=== PATIENT | female | born 1970 | race Caucasian/White ===

== ENCOUNTER → 2017-11-29 | Outpatient (CLI) | payer OTHER ==
[2017-08-09 15:00] VITALS: BP 122/64
[~2017-11-29] MED LIST: ACET325C5 PO; CETI10TA22 PO; ESTR2TAB PO; [UNRECOGNIZED DRUG - CODE] PO
--- NOTE | 2017-11-29 17:14 | RAD ---
Chest radiograph 11/29/2017 12:00 AM INDICATION: Malignant melanoma of the right eye COMPARISON: August 08, 2017 TECHNIQUE: Frontal and lateral views of the chest are provided. FINDINGS: The cardiomediastinal silhouette is within normal limits. There are no pleural effusions. There is no pulmonary vascular congestion. There is no pneumothorax. The lungs are clear. No significant osseous abnormality is identified. IMPRESSION: No acute cardiopulmonary process. Electronically signed by: Vandana Aguilar MD (11/29/2017 5:11 PM) [id number]
== END | disposition home or self-care (01) ==
LOC: RAD 15:19
PROVIDERS: ATTEND Internal Medicine Hematology & Oncology
DX: C69.31 Malignant neoplasm of right choroid (principal); I10 Essential (primary) hypertension; E78.5 Hyperlipidemia, unspecified; M19.90 Unspecified osteoarthritis, unspecified site; Z82.49 Family history of ischemic heart disease and other diseases of the circulatory system; Z83.3 Family history of diabetes mellitus; Z82.61 Family history of arthritis; Z87.891 Personal history of nicotine dependence; Z90.721 Acquired absence of ovaries, unilateral; Z90.49 Acquired absence of other specified parts of digestive tract; Z88.0 Allergy status to penicillin; Z88.5 Allergy status to narcotic agent; Z88.8 Allergy status to other drugs, medicaments and biological substances; Z90.710 Acquired absence of both cervix and uterus
CPT/HCPCS: 71046

== ENCOUNTER → 2018-02-17 | Day surgery (SDC) | payer OTHER ==
[~2018-02-17] MED LIST changes: +IV RINGERS,LACTATED 1000ML 1,000 ML IV SCH; +LIDOCAINE 1% PF 2 ML VIAL. ID PRN; +ONDANSETRON PF 4 MG/2 ML VIAL. IV PRN; +PROCHLORPERAZINE 10 MG/2 ML VIAL. IV PRN; +PROPOFOL 20 ML IV ONE; +fentaNYL PF VIAL 100 MCG/2 ML VIAL IV PRN
[2018-02-17 08:35] VITALS: BP 98/57
--- NOTE | 2018-02-20 18:07 | PATHOLOGY ---
[facility] Accession Number: [id number] . 01 Material submitted: . ESOPHAGITIS BIOPSY . 01 Clinical history: . Nausea with vomiting . 02 Diagnosis: Esophageal biopsies: - Segments of hyperplastic squamous esophageal mucosa showing focal ulceration and acute and chronic inflammation. [facility]/02/20/2018 . 02 Comment: Sections of the esophageal biopsy reveal segments of focally tangentially oriented, hyperplastic squamous esophageal mucosa showing focal ulceration and acute and chronic inflammation with focal intraepithelial neutrophils. There are no viral inclusions identified. The findings are consistent with reflux esophagitis. ([facility] 02/20/2018) . 02 Electronically signed: . Tim Bess MD, Pathologist NPI- [id number] . 01 Gross description: . Received in formalin labeled "Angeles Garcia, esophagitis BX," are 3 segments of jackson soft tissue measuring 0.9 x 0.5 x 0.2 cm in aggregate dimensions and ranging from 0.2 to 0.5 cm in maximum dimension. The specimen is submitted entirely in cassette A1. ([facility]; 02/17/2018) TOB/TOB . 02 Pathologist provided ICD-10: K21.0 . 02 CPT . 137686 Specimen Comment: A courtesy copy of this report has been sent to Specimen Comment: [phone]. Specimen Comment: Report sent to DR CHANEY Specimen Comment: A duplicate report has been generated due to demographic updates. Performed at: 01 [facility] [address] [id number] MD Marco Ramirez MD Phone: [phone] Performed at: [address] [facility] [address] [place], [place] [id number] MD Tim Bess MD Phone: [phone]
== END | disposition home or self-care (01) ==
LOC: ENDOS 06:51
PROVIDERS: ATTEND Internal Medicine Gastroenterology
DX: K22.10 Ulcer of esophagus without bleeding (principal); K21.0 Gastro-esophageal reflux disease with esophagitis; K29.50 Unspecified chronic gastritis without bleeding; F32.9 Major depressive disorder, single episode, unspecified; E78.00 Pure hypercholesterolemia, unspecified; Z88.0 Allergy status to penicillin; Z88.2 Allergy status to sulfonamides; Z91.040 Latex allergy status; Z91.048 Other nonmedicinal substance allergy status; Z86.010 Personal history of colon polyps; Z90.710 Acquired absence of both cervix and uterus; Z98.84 Bariatric surgery status; Z98.890 Other specified postprocedural states; Z83.3 Family history of diabetes mellitus; Z82.49 Family history of ischemic heart disease and other diseases of the circulatory system; Z80.41 Family history of malignant neoplasm of ovary; Z79.899 Other long term (current) drug therapy; Z98.51 Tubal ligation status
CPT/HCPCS: 43239; 88305; J2704

== ENCOUNTER → 2018-02-21 | Outpatient (CLI) | payer OTHER ==
[2018-02-17 08:35] VITALS: BP 98/57
[~2018-02-21] MED LIST changes: +BARIUM SULFATE 340 GM SUSPENSION. PO ONE; +BARIUM SULFATE 60% 355 ML SUSP PO ONE; -IV RINGERS,LACTATED 1000ML 1,000 ML IV SCH; -LIDOCAINE 1% PF 2 ML VIAL. ID PRN; -ONDANSETRON PF 4 MG/2 ML VIAL. IV PRN; -PROCHLORPERAZINE 10 MG/2 ML VIAL. IV PRN; -PROPOFOL 20 ML IV ONE; +SIMETHICONE/SOD BICARB/CITRIC ACID PACKET. PO ONE; -fentaNYL PF VIAL 100 MCG/2 ML VIAL IV PRN
--- NOTE | 2018-02-21 10:55 | RAD ---
Upper GI, 02/21/2018: HISTORY: Nausea and vomiting, previous lap band The study was performed utilizing high density barium and gas-forming crystals followed by regular liquid barium. 2.9 minutes of fluoroscopy time was utilized. 14 static and dynamic fluoroscopic sequence is were recorded. The swallowing mechanism is intact. The esophageal peristalsis is normal. A lap band device is in place. There is good flow of contrast through the banded area into the body of the stomach. No gastric ulceration or mass is evident. There is a suggestion of mild fold thickening in the proximal duodenum, although incomplete duodenal distention may be contributing to this appearance. No duodenal ulcer is evident. IMPRESSION:- 1. A lap band is in place. 2. Mild fold thickening in the proximal duodenum suggesting nonspecific duodenitis. 3. No evidence of significant upper GI obstruction. Electronically signed by: Matt Garcia MD (02/21/2018 10:51 AM) [facility] [place]
== END | disposition home or self-care (01) ==
LOC: RAD 08:19
PROVIDERS: ATTEND Internal Medicine Gastroenterology
DX: R11.2 Nausea with vomiting, unspecified (principal)
CPT/HCPCS: 74240

== ENCOUNTER → 2018-09-26 | Outpatient (CLI) | payer OTHER, BC ==
[2018-02-17 08:35] VITALS: BP 98/57
[~2018-09-26] MED LIST changes: -BARIUM SULFATE 340 GM SUSPENSION. PO ONE; -BARIUM SULFATE 60% 355 ML SUSP PO ONE; -SIMETHICONE/SOD BICARB/CITRIC ACID PACKET. PO ONE
--- NOTE | 2018-09-26 16:07 | RAD ---
Examination: RIBS LEFT AND PA CHEST History: Rib pain Comparison/Correlation: None Findings: PA standing upright frontal view chest was obtained. 4 views of the left ribs in addition were provided. Heart size and pulmonary vasculature are normal. No infiltrate or pleural effusion. Left ribs are intact with no fracture or destructive change. Catheter tubing involving left upper quadrant with associated port noted. Surgical clips are evident. Impression: Left ribs are intact. No infiltrate. Electronically signed by: Charles Aldana MD (09/26/2018 4:04 PM) [facility]
== END | disposition home or self-care (01) ==
LOC: RAD 11:57
PROVIDERS: ATTEND Internal Medicine Hematology & Oncology
DX: M95.4 Acquired deformity of chest and rib (principal); Z88.5 Allergy status to narcotic agent; Z91.041 Radiographic dye allergy status; Z88.0 Allergy status to penicillin; Z91.048 Other nonmedicinal substance allergy status
CPT/HCPCS: 71101

== ENCOUNTER 2019-02-10 20:48 | Emergency (ER) | payer OTHER, BC ==
[~2019-02-10] VITALS: Ht 157.5 cm; Wt 68.0 kg
[~2019-02-10 20:48] MED LIST changes: -ACET325C5 PO; +ACET325C6 PO
--- NOTE | 2019-02-10 21:41 | PHYS DOC ---
Past Medical History Past Medical History: No Pertinent History Additional Past Medical Histor: EYE CANCER, GASTRIC SLEEVE Past Surgical History: Hysterectomy, Other Additional Past Surgical Histo: lap band Alcohol Use: None Drug Use: None Adult General Chief Complaint Chief Complaint: ABDOMINAL PAIN HPI HPI 49-year-old female presents to the emergency department with complaints of right lower quadrant abdominal pain. She states the pain started today early this morning. She describes the pain as sharp, constant she states is worse with laying flat and movements. She describes nausea as well as some vomiting. She denies any diarrhea. She does describe chills however unknown fever. Patient had a history of lap band as well as hysterectomy. She as well has a history of melanoma in her right eye. Review of Systems Review of Systems Constitutional: chills Eyes: Denies change in visual acuity, redness, or eye pain [] HENT: Denies nasal congestion or sore throat [] Respiratory: Denies cough or shortness of breath [] Cardiovascular: No additional information not addressed in HPI [] GI: RLQ abdominal pain, nausea, vomiting, no bloody stools or diarrhea [] : Denies dysuria or hematuria [] Musculoskeletal: Denies back pain or joint pain [] Integument: Denies rash or skin lesions [] Neurologic: Denies headache, focal weakness or sensory changes [] All other systems were reviewed and found to be within normal limits, except as documented in this note. Current Medications Current Medications Current Medications Medications (Trade) Dose Ordered Sig/Mark Anthony Start Time Stop Time Status Last Admin Dose Admin Info (CONTRAST GIVEN -- Rx MONITORING) 1 each PRN DAILY PRN 02/10/19 22:45 02/12/19 22:44 Iohexol (Omnipaque 300 Mg/ml) 75 ml 1X ONCE 02/10/19 23:00 02/10/19 23:01 DC 02/10/19 23:09 75 ML Ketorolac Tromethamine (Toradol 30mg Vial) 30 mg 1X ONCE 02/10/19 22:30 02/10/19 22:31 DC 02/10/19 22:19 30 MG Sodium Chloride 1,000 ml @ 1,000 mls/hr Q1H 02/10/19 22:00 02/10/19 22:59 DC 02/10/19 21:50 1,000 MLS/HR Allergies Allergies Allergies Coded Allergies Type Severity Reaction Last Updated Verified Penicillins Allergy Intermediate hives 02/17/18 Yes codeine Adverse Reaction Severe bradycardia 02/17/18 Yes adhesive Adverse Reaction Intermediate "tears my skin off" 02/17/18 Yes Physical Exam Physical Exam Constitutional: Well developed, well nourished, no acute distress, non-toxic appearance. [] HENT: Normocephalic, atraumatic, bilateral external ears normal, oropharynx moist, no oral exudates, nose normal. [] Eyes: PERRLA, EOMI, conjunctiva normal, no discharge. [] Cardiovascular:Heart rate regular rhythm, no murmur [] Lungs & Thorax: Bilateral breath sounds clear to auscultation [] Abdomen: TTP RLQ, + rebound on exam, no pulsatile mass, there is a masslike feeling in RLQ Skin: Warm, dry, no erythema, no rash. [] Back: No tenderness, no CVA tenderness. [] Extremities: No tenderness, no edema. [] Neurologic: Alert and oriented X 3, no focal deficits noted. [] Psychologic: Affect normal, judgement normal, mood normal. [] Current Patient Data Vital Signs Vital Signs Date Time Temp Pulse Resp B/P (MAP) Pulse Ox O2 Delivery O2 Flow Rate FiO2 02/10/19 21:14 97.9 90 19 139/65 (89) 100 Room Air 97.9 Lab Values Laboratory Tests Test 02/10/19 20:55 02/10/19 21:05 Urine Collection Type Unknown Urine Color Yellow Urine Clarity Clear Urine pH 6.0 Urine Specific [place] <=1.005 Urine Protein Negative mg/dL (NEG-TRACE) Urine Glucose (UA) Negative mg/dL (NEG) Urine Ketones (Stick) Negative mg/dL (NEG) Urine Blood Negative (NEG) Urine Nitrite Negative (NEG) Urine Bilirubin Negative (NEG) Urine Urobilinogen Dipstick 0.2 mg/dL (0.2 mg/dL) Urine Leukocyte Esterase Negative (NEG) Urine RBC 0 /HPF (0-2) Urine WBC 0 /HPF (0-4) Urine Squamous Epithelial Cells Few /LPF Urine Bacteria 0 /HPF (0-FEW) White Blood Count 8.5 x10^3/uL (4.0-11.0) Red Blood Count 5.09 x10^6/uL (3.50-5.40) Hemoglobin 15.2 g/dL (12.0-15.5) Hematocrit 44.4 % (36.0-47.0) Mean Corpuscular Volume 87 fL (79-100) Mean Corpuscular Hemoglobin 30 pg (25-35) Mean Corpuscular Hemoglobin Concent 34 g/dL (31-37) Red Cell Distribution Width 13.4 % (11.5-14.5) Platelet Count 248 x10^3/uL (140-400) Neutrophils (%) (Auto) 49 % (31-73) Lymphocytes (%) (Auto) 42 % (24-48) Monocytes (%) (Auto) 6 % (0-9) Eosinophils (%) (Auto) 3 % (0-3) Basophils (%) (Auto) 1 % (0-3) Neutrophils # (Auto) 4.2 x10^3/uL (1.8-7.7) Lymphocytes # (Auto) 3.6 x10^3/uL (1.0-4.8) Monocytes # (Auto) 0.5 x10^3/uL (0.0-1.1) Eosinophils # (Auto) 0.2 x10^3/uL (0.0-0.7) Basophils # (Auto) 0.1 x10^3/uL (0.0-0.2) Sodium Level 141 mmol/L (136-145) Potassium Level 3.7 mmol/L (3.5-5.1) Chloride Level 103 mmol/L (98-107) Carbon Dioxide Level 28 mmol/L (21-32) Anion Gap 10 (6-14) Blood Urea Nitrogen 10 mg/dL (7-20) Creatinine 0.8 mg/dL (0.6-1.0) Estimated GFR (Cockcroft-Gault) 76.6 BUN/Creatinine Ratio 13 (6-20) Glucose Level 96 mg/dL (70-99) Calcium Level 9.3 mg/dL (8.5-10.1) Total Bilirubin 0.2 mg/dL (0.2-1.0) Aspartate Amino Transferase (AST) 18 U/L (15-37) Alanine Aminotransferase (ALT) 11 U/L (14-59) L Alkaline Phosphatase 72 U/L (46-116) Total Protein 7.9 g/dL (6.4-8.2) Albumin 4.0 g/dL (3.4-5.0) Albumin/Globulin Ratio 1.0 (1.0-1.7) Laboratory Tests 02/10/19 21:05 Laboratory Tests 02/10/19 21:05 EKG EKG [] Radiology/Procedures Radiology/Procedures [][facility] [address] [place] [address] IMAGING REPORT Signed PATIENT: IRWIN MADISONOUNT: [id number] : 1970 LOCATION: ER AGE: 49 SEX: F EXAM STATUS: REG ER ORD. PHYSICIAN: LIZ TAYLOR MD REASON: RLQ abd pain, history of melanoma in right eye PROCEDURE: CT ABD PELV W/ IV CONTRST ONLY INDICATION: Abdomen pain COMPARISON: None. TECHNIQUE: Axial CT images obtained through the abdomen and pelvis with contrast. One or more of the following individualized dose reduction techniques were utilized for this examination: 1. Automated exposure control; 2. Adjustment of the mA and/or kV according to patient size; 3. Use of iterative reconstruction technique. FINDINGS: Distention of the distal esophagus with gastric band. Abdominal aorta is not aneurysmal. Postcholecystectomy changes. No peripancreatic fluid collection. Spleen unremarkable. Subcentimeter low-density left renal lesion, too small to characterize. No hydronephrosis. Urinary bladder is partially distended. Colonic diverticulosis. Appendix does not appear dilated. There couple mildly prominent loops of small bowel but no high-grade transition point to suggest obstruction. Degenerative changes spine. IMPRESSION: * The appendix does not appear inflamed. * There is some distention of the distal esophagus which could be related to the patient's gastric band. Electronically signed by: Daniel Ulrich MD (02/10/2019 11:11 PM) [id number] DICTATED and SIGNED BY: DANIEL ULRICH MD DATE: 02/10/19 6294 Course & Med Decision Making Course & Med Decision Making Pertinent Labs and Imaging studies reviewed. (See chart for details) []49-year-old female presents to the emergency department with complaints of right lower quadrant abdominal pain. She states the pain started today early this morning. She describes the pain as sharp, constant she states is worse with laying flat and movements. She describes nausea as well as some vomiting. She denies any diarrhea. She does describe chills however unknown fever. Patient had a history of lap band as well as hysterectomy. She as well has a history of melanoma in her eye Labs reviewed - no evidence of infectious process UAD negative CT negative for acute abdominal process Discussed CT findings - appendix is normal, no obstruction appreciated Discussed return precautions Dragon Disclaimer Dragon Disclaimer This electronic medical record was generated, in whole or in part, using a voice recognition dictation system. Departure Departure Impression: Primary Impression: Right lower quadrant abdominal pain Disposition: HOME, SELF-CARE Condition: IMPROVED Referrals: SANIA CHANEY MD (PCP) Patient Instructions: Abdominal Pain (Nonspecific) Additional Instructions: Recommend follow up with PCP 3 - 5 days Return to the ER with worsening symptoms, intractable pain, fever, altered mental status Tylenol/Motrin as needed for pain Bentyl rx provided along with zofran for nausea Scripts Dicyclomine Hcl (DICYCLOMINE HCL) 10 Mg Capsule 1 CAP PO PRN Q6HRS, #20 CAP 3 Refills Prov: LIZ TAYLOR MD 02/10/19 Ondansetron Hcl (ZOFRAN) 4 Mg Tablet 1 TAB PO PRN Q6-8HRS for nausea, #12 TAB Prov: LIZ TAYLOR MD 02/10/19 LIZ TAYLOR MD Feb 10, 2019 21:41
[2019-02-10 21:43] LABS: BILIRUBIN,URINE NEGATIVE (NEG); CLARITY,URINE CLEAR; COLOR,URINE YELLOW; NITRITE,URINE NEGATIVE (NEG); PROTEIN,URINE NEGATIVE (NEG-TRACE); UROBILINOGEN,URINE 0.2 mg/dL (0.2 mg/dL)
[2019-02-10 21:43] LABS: BASO # 0.1 x10^3/uL (0.0-0.2); BASO % 1 % (0-3); EOS # 0.2 x10^3/uL (0.0-0.7); EOS % 3 % (0-3); HEMATOCRIT 44.4 % (36.0-47.0); HEMOGLOBIN 15.2 g/dL (12.0-15.5); LYMPH # 3.6 x10^3/uL (1.0-4.8); LYMPH % 42 % (24-48); MEAN CORPUSCULAR HEMOGLOBIN 30 pg (25-35); MEAN CORPUSCULAR HGB CONC 34 g/dL (31-37); MEAN CORPUSCULAR VOLUME 87 fL (79-100); MONO # 0.5 x10^3/uL (0.0-1.1); MONO % 6 % (0-9); NEUT # 4.2 x10^3/uL (1.8-7.7); NEUT % 49 % (31-73); PLATELET COUNT 248 x10^3/uL (140-400); RED BLOOD COUNT 5.09 x10^6/uL (3.50-5.40); RED CELL DISTRIBUTION WIDTH 13.4 % (11.5-14.5); WHITE BLOOD COUNT 8.5 x10^3/uL (4.0-11.0)
[2019-02-10] MEDS: IV NORMAL SALINE 1000ML BAG 1,000 ML IV SCH ×2 (21:45→21:50)
[2019-02-10 21:51] LABS: BACTERIA,URINE 0 /HPF (0-FEW); RBC,URINE 0 /HPF (0-2); SQUAMOUS EPITHELIAL CELL,UR FEW /LPF; WBC,URINE 0 /HPF (0-4)
[2019-02-10 21:53] LABS: CALCIUM 9.3 mg/dL (8.5-10.1); CREATININE 0.8 mg/dL (0.6-1.0); GFR 76.6; POTASSIUM 3.7 mmol/L (3.5-5.1)
[2019-02-10 22:01] LABS: TOTAL BILIRUBIN 0.2 mg/dL (0.2-1.0); TOTAL PROTEIN 7.9 g/dL (6.4-8.2)
[2019-02-10] MEDS ORDERED: KETOROLAC 30 MG/ML VIAL. IVP ONE (22:30)
[2019-02-10] MEDS ORDERED: CONTRAST GIVEN. MC PRN (22:45)
[2019-02-10 22:57] VITALS: BP 117/66
[2019-02-10] MEDS ORDERED: IOHEXOL 300 MG/ML 100ML VIAL. IV ONE (23:00)
--- NOTE | 2019-02-10 23:14 | RAD ---
INDICATION: Abdomen pain COMPARISON: None. TECHNIQUE: Axial CT images obtained through the abdomen and pelvis with contrast. One or more of the following individualized dose reduction techniques were utilized for this examination: 1. Automated exposure control; 2. Adjustment of the mA and/or kV according to patient size; 3. Use of iterative reconstruction technique. FINDINGS: Distention of the distal esophagus with gastric band. Abdominal aorta is not aneurysmal. Postcholecystectomy changes. No peripancreatic fluid collection. Spleen unremarkable. Subcentimeter low-density left renal lesion, too small to characterize. No hydronephrosis. Urinary bladder is partially distended. Colonic diverticulosis. Appendix does not appear dilated. There couple mildly prominent loops of small bowel but no high-grade transition point to suggest obstruction. Degenerative changes spine. IMPRESSION: * The appendix does not appear inflamed. * There is some distention of the distal esophagus which could be related to the patient's gastric band. Electronically signed by: Antony Landrum MD (02/10/2019 11:11 PM) [facility]
[2019-02-10] MEDS ORDERED: ONDA4TAB7 PO (23:36)
[2019-02-10] MEDS ORDERED: DICY10CA3 PO (23:36)
== END 2019-02-10 23:45 | disposition home or self-care (01) ==
LOC: ER 20:48
DX: R10.31 Right lower quadrant pain (principal); R11.2 Nausea with vomiting, unspecified; Z90.710 Acquired absence of both cervix and uterus; Z88.0 Allergy status to penicillin; Z88.5 Allergy status to narcotic agent; Z88.8 Allergy status to other drugs, medicaments and biological substances
CPT/HCPCS: 36415; 74177; 80053; 81001; 85025; 96361; 96374; 99285; J1885; J7030; Q9967